=== PATIENT | male | born 1955 | race Caucasian/White ===

== ENCOUNTER 2022-04-23 17:38 | Emergency (ER) | payer OTHER, MEDICARE ==
[~2022-04-23] VITALS: Ht 175.3 cm; Wt 63.6 kg
[~2022-04-23 17:38] MED LIST: ASPI-1265 PO; ATOR10TA70 PO; BUSP15TA8 PO; CHOL10002 PO; DIPH-423 PO; IBUP-1984 PO; LOP25T PO; MIRT45TA83 PO; PANT-47 PO; QUET25TA PO
[2022-04-23 18:33] LABS: MEAN PLATELET VOLUME 7.6 FL (7.4-10.4)
[2022-04-23 18:36] LABS: BASOPHILS % (AUTO) 0.7 % (0-1); EOSINOPHILS % (AUTO) 0.2 % (0-6); HEMATOCRIT 41.9 % (42.0-52.0); HEMOGLOBIN 14.1 g/dl (14.0-17.9); LYMPHOCYTES # (AUTO) 0.4 X10'3 (1.1-4.8); LYMPHOCYTES % (AUTO) 9.8 % (21-51); MEAN CORPUSCULAR HEMOGLOBIN 32.8 PG (27.0-31.0); MEAN CORPUSCULAR HGB CONC 33.6 g/dL (33.0-36.5); MEAN CORPUSCULAR VOLUME 97.5 FL (78-98); MONOCYTES # (AUTO) 0.4 X10'3 (0-0.9); MONOCYTES % (AUTO) 8.2 % (2-12); NEUTROPHILS # (AUTO) 3.6 X10'3 (1.8-7.7); NEUTROPHILS % (AUTO) 81.1 % (42-75); PLATELET COUNT 143 X10'3 (140-440); RED BLOOD COUNT 4.29 X10'6 (4.70-6.10); WHITE BLOOD COUNT 4.4 X10'3 (4.5-11.0)
[2022-04-23 18:56] LABS: ALANINE AMINOTRANSFERASE 55 U/L (12-78); ALBUMIN 3.5 G/DL (3.4-5.0); ALBUMIN/GLOBULIN RATIO 0.8 (1.1-1.5); ALKALINE PHOSPHATASE 86 IU/L (46-116); ANION GAP 8 (8-16); ASPARTATE AMINO TRANSFERASE 33 U/L (10-37); BILIRUBIN,TOTAL 0.6 MG/DL (0.1-1.0); BLOOD UREA NITROGEN 13 MG/DL (7-18); CALCIUM 8.5 MG/DL (8.5-10.1); CHLORIDE 97 MMOL/L (99-107); GLUCOSE 99 MG/DL (70-104); POTASSIUM 4.1 MMOL/L (3.5-5.1); SODIUM 135 MMOL/L (135-145); TOTAL CARBON DIOXIDE 30.3 MMOL/L (24-32); eGFR 55 ML/MIN
[2022-04-23] MEDS ORDERED: DOXY100C76 PO (20:33)
[2022-04-23] MEDS ORDERED: DOXYCYCLINE 100MG CAPSULE PO STA (20:33)
[2022-04-23] MEDS ORDERED: acetaminophen 325mg tablet PO ONE (20:55)
[2022-04-23 21:16] VITALS: BP 134/70
== END 2022-04-23 21:18 | disposition home or self-care (01) ==
LOC: ER 17:38
DX: B34.9 Viral infection, unspecified (principal); Z20.822 Contact with and (suspected) exposure to COVID-19
CPT/HCPCS: 36415; 71045; 80053; 83880; 84484; 85025; 87502; 87503; 87635; 93005; 99285; C9803

== ENCOUNTER 2022-07-15 11:00 | Day surgery (SDC) | payer OTHER ==
[2022-07-11 10:22] LABS: BASOPHILS # (AUTO) 0.1 X10'3 (0-0.2); BASOPHILS % (AUTO) 1.1 % (0-1); EOSINOPHILS # (AUTO) 0.1 X10'3 (0-0.9); EOSINOPHILS % (AUTO) 2.5 % (0-6); HEMATOCRIT 41.9 % (42.0-52.0); HEMOGLOBIN 14.1 g/dl (14.0-17.9); LYMPHOCYTES # (AUTO) 1.2 X10'3 (1.1-4.8); LYMPHOCYTES % (AUTO) 19.3 % (21-51); MEAN CORPUSCULAR HEMOGLOBIN 34.4 PG (27.0-31.0); MEAN CORPUSCULAR HGB CONC 33.5 g/dL (33.0-36.5); MEAN CORPUSCULAR VOLUME 102.5 FL (78-98); MEAN PLATELET VOLUME 7.5 FL (7.4-10.4); MONOCYTES # (AUTO) 0.5 X10'3 (0-0.9); MONOCYTES % (AUTO) 9.2 % (2-12); NEUTROPHILS # (AUTO) 4.1 X10'3 (1.8-7.7); NEUTROPHILS % (AUTO) 67.9 % (42-75); PLATELET COUNT 211 X10'3 (140-440); RED BLOOD COUNT 4.09 X10'6 (4.70-6.10); RED CELL DISTRIBUTION WIDTH 16.3 % (11.5-14.5)
[2022-07-11 10:29] LABS: ALBUMIN 3.4 G/DL (3.4-5.0); ANION GAP 7 (8-16); BLOOD UREA NITROGEN 22 MG/DL (7-18); BUN/CREATININE RATIO 18.3 (5.4-32.0); CALCIUM 8.3 MG/DL (8.5-10.1); CHLORIDE 107 MMOL/L (99-107); GLUCOSE 90 MG/DL (70-104); POTASSIUM 4.6 MMOL/L (3.5-5.1); SODIUM 142 MMOL/L (135-145); TOTAL CARBON DIOXIDE 28.2 MMOL/L (24-32); eGFR 61 ML/MIN
[2022-07-11 10:33] LABS: APTT 35 SECONDS (22-32)
[2022-07-15] VITALS (13 sets, daily range): BP systolic 77–105; BP diastolic 43–67
[~2022-07-15] VITALS: Ht 175.3 cm; Wt 68.9 kg
[2022-07-15] MEDS ORDERED: MIDAZolam 1mg/ml 10ml vial IV ONE (11:20)
[2022-07-15] MEDS ORDERED: normal saline 1000ml 1,000 ML IV SCH (11:20)
[2022-07-15] MEDS ORDERED: fentaNYL/PF 50MCG/1 ML 2ML syringe IV ONE (11:20)
[2022-07-15] MEDS ORDERED: FURO-149 PO (11:29)
[2022-07-15] MEDS ORDERED: ATOR40TA PO (11:29)
[2022-07-15] MEDS ORDERED: AMIO200T61 PO (11:29)
[2022-07-15] MEDS ORDERED: METO50TA17 PO (11:29)
[2022-07-15] MEDS ORDERED: APIX5TAB3 PO (11:29)
[2022-07-15] MEDS ORDERED: ALB0.5UD IH (11:32)
[2022-07-15] MEDS ORDERED: SACU1TAB7 PO (11:32)
[2022-07-15] MEDS ORDERED: EMPA10TA PO (11:32)
[2022-07-15] MEDS ORDERED: METO-384 PO (11:34)
== END 2022-07-15 14:15 | disposition home or self-care (01) ==
LOC: SSTAY O 11:00
PROVIDERS: ATTEND Student in an Organized Health Care Education/Training Program
DX: I48.91 Unspecified atrial fibrillation (principal); J44.9 Chronic obstructive pulmonary disease, unspecified; I11.0 Hypertensive heart disease with heart failure; I50.9 Heart failure, unspecified; E78.5 Hyperlipidemia, unspecified; I42.0 Dilated cardiomyopathy; F32.A Depression, unspecified; F17.290 Nicotine dependence, other tobacco product, uncomplicated; F12.90 Cannabis use, unspecified, uncomplicated; F15.91 Other stimulant use, unspecified, in remission; Z95.0 Presence of cardiac pacemaker; Z79.899 Other long term (current) drug therapy; Z79.82 Long term (current) use of aspirin; F10.20 Alcohol dependence, uncomplicated
CPT/HCPCS: 36415; 80048; 85025; 85610; 85730; 92960; 93005; J2250; J3010; J7030; A4620

== ENCOUNTER 2024-07-21 21:32 | Inpatient (IN) | payer OTHER, MEDICARE ==
[~2024-07-21] VITALS: Ht 175.3 cm; Wt 68.2 kg
[~2024-07-21 21:32] MED LIST changes: +ALB0.5UD IH; +AMI200T PO; +APIX5TAB3 PO; -ATOR10TA70 PO; +ATOR40TA PO; -BUSP15TA8 PO; -DIPH-423 PO; +EMPA10TA PO; +FURO-149 PO; -IBUP-1984 PO; -LOP25T PO; +METO-384 PO; -MIRT45TA83 PO; -PANT-47 PO; -QUET25TA PO; +SACU1TAB7 PO
[2024-07-21 22:06] LABS: BASOPHILS # (AUTO) 0.1 X10'3 (0-0.2); BASOPHILS % (AUTO) 1.2 % (0-1); EOSINOPHILS # (AUTO) 0.1 X10'3 (0-0.9); HEMATOCRIT 43.1 % (42.0-52.0); HEMOGLOBIN 14.3 g/dl (14.0-17.9); LYMPHOCYTES # (AUTO) 1.6 X10'3 (1.1-4.8); MEAN CORPUSCULAR HEMOGLOBIN 33.3 PG (27.0-31.0); MEAN CORPUSCULAR HGB CONC 33.2 g/dL (33.0-36.5); MEAN CORPUSCULAR VOLUME 100.2 FL (78-98); MEAN PLATELET VOLUME 7.4 FL (7.4-10.4); MONOCYTES # (AUTO) 0.4 X10'3 (0-0.9); MONOCYTES % (AUTO) 7.7 % (2-12); NEUTROPHILS # (AUTO) 2.6 X10'3 (1.8-7.7); NEUTROPHILS % (AUTO) 55.1 % (42-75); PLATELET COUNT 198 X10'3 (140-440); RED BLOOD COUNT 4.31 X10'6 (4.70-6.10); RED CELL DISTRIBUTION WIDTH 14.9 % (11.5-14.5); WHITE BLOOD COUNT 4.8 X10'3 (4.5-11.0)
[2024-07-21 22:20] LABS: ALANINE AMINOTRANSFERASE 42 U/L (12-78); ALBUMIN 3.5 G/DL (3.4-5.0); ALBUMIN/GLOBULIN RATIO 0.7 (1.1-1.5); ALKALINE PHOSPHATASE 99 IU/L (46-116); ANION GAP 2 (8-16); ASPARTATE AMINO TRANSFERASE 35 U/L (10-37); BILIRUBIN,TOTAL 0.4 MG/DL (0.1-1.0); BLOOD UREA NITROGEN 16 MG/DL (7-18); BUN/CREATININE RATIO 13.7 (10.0-20.0); CALCIUM 8.4 MG/DL (8.5-10.1); CHLORIDE 107 MMOL/L (99-107); CREATININE 1.17 MG/DL (0.60-1.10); GLUCOSE 95 MG/DL (70-104); POTASSIUM 3.8 MMOL/L (3.5-5.1); SODIUM 145 MMOL/L (135-145); TOTAL CARBON DIOXIDE 35.6 MMOL/L (24-32); TOTAL PROTEIN 8.4 G/DL (6.4-8.2); eCRCL 58 ML/MIN; eGFR 62 ML/MIN
[2024-07-21 22:26] LABS: PRO BRAIN NATRIURETIC PEPTIDE 4261 PG/ML (0-125)
[2024-07-22] VITALS (18 sets, daily range): BP systolic 107–143; BP diastolic 54–83; PULSE 52–122; RESP 13–20; TEMP 97.4–98.1; O2SAT 96–99
[2024-07-22] MEDS: magnesium oxide 400mg tablet PO ONE (00:54)
[2024-07-22] MEDS: orphenadrine citrate 60mg/2ml inj. IM ONE (00:55)
[2024-07-22] MEDS: chlordiazePOXIDE 25mg capsule PO ONE (01:00)
[2024-07-22] MEDS: HYDROcodone/acetaminophen 5mg/325mg tablet PO ONE ×2 (01:35→20:48)
[2024-07-22 02:01] LABS: MAGNESIUM 2.1 MG/DL (1.5-2.4)
[2024-07-22 02:04] LABS: ETHANOL < 10 MG/DL (<10)
[2024-07-22] MEDS ORDERED: potassium Cl 40MEQ/1/2NS 520ml 520 ML IV PRN (02:15)
[2024-07-22] MEDS ORDERED: magnesium sulf-water 2g/50mL 50 ML IV PRN (02:15)
[2024-07-22] MEDS ORDERED: magnesium sulf-water 4G/100mL 100 ML IV PRN (02:15)
[2024-07-22] MEDS ORDERED: morphine 2 MG/ML inj. syringe IV PRN (02:15)
[2024-07-22] MEDS ORDERED: acetaminophen 325mg tablet PO PRN ×2 (02:15)
[2024-07-22] MEDS ORDERED: magnesium Cl slow-release 64mg tablet PO PRN (02:15)
[2024-07-22] MEDS ORDERED: ondansetron/PF 4mg/2ml inj IV PRN (02:15)
[2024-07-22] MEDS ORDERED: potassium Cl 20 mEq SR tablet PO PRN ×2 (02:15)
[2024-07-22] MEDS ORDERED: magnesium hydroxide 30ml (MOM) UD suspension PO PRN (02:15)
[2024-07-22] MEDS ORDERED: mag hydrox/Alum hydrox/simeth 30ml oral suspension PO PRN (02:15)
[2024-07-22] MEDS ORDERED: ipratropium/albuterol 3ml nebule NEB PRN (02:30)
[2024-07-22] MEDS ORDERED: albuterol 2.5 MG/3 ML nebule NEB PRN (02:30)
[2024-07-22] MEDS: metoprolol tartrate 1mg/ml inj IV SCH (02:35)
[2024-07-22 03:33] LABS: HEMOGLOBIN A1C 5.6 % (4.5-6.2)
[2024-07-22 03:42] LABS: APTT 30 SECONDS (22-32); INR 1.1 INR; PROTHROMBIN TIME 11.1 SECONDS (9.0-12.0)
[2024-07-22 03:45] LABS: PHOSPHORUS 3.7 MG/DL (2.3-4.5); POTASSIUM 4.3 MMOL/L (3.5-5.1); THYROID STIMULATING HORMONE 1.26 ulU/ml (0.34-4.50)
[2024-07-22] MEDS: diltiazem-NS 100mg/100ml 100 ML IV SCH ×2 (05:20→14:11)
[2024-07-22] MEDS: K and/or MAG REPLACEMENT MC SCH (07:31)
[2024-07-22] MEDS: nicotine 14mg patch - 24hr TD SCH (07:32)
[2024-07-22] MEDS: docusate sod 100mg capsule PO SCH (08:00)
[2024-07-22] MEDS ORDERED: heparin, porcine 5000 units/ml vial SQ SCH (08:00)
[2024-07-22] MEDS: apixaban 5mg tablet PO SCH (08:14)
[2024-07-22] MEDS: atorvastatin 20mg tablet PO SCH (08:14)
[2024-07-22] MEDS: cholecalciferol (vitamin D3) 1,000 unit (25mcg) tablet PO SCH (08:14)
[2024-07-22] MEDS: sacubitril/valsartan 49mg-51mg tablet PO SCH ×2 (09:12→20:55)
[2024-07-22] MEDS: metoprolol succinate 25mg (24-HOUR) SR. Tablet PO SCH (14:10)
[2024-07-22 17:09] LABS: D-DIMER 0.25 MG/L FEU (0-0.50)
[2024-07-23] VITALS (9 sets, daily range): BP systolic 91–150; BP diastolic 52–78; PULSE 63–124; RESP 13–20; TEMP 97.4–97.8; O2SAT 97–100
[2024-07-23] MEDS: HYDROcodone/acetaminophen 5mg/325mg tablet PO PRN (05:17)
[2024-07-23 06:29] LABS: BASOPHILS # (AUTO) 0.1 X10'3 (0-0.2); EOSINOPHILS # (AUTO) 0.2 X10'3 (0-0.9); EOSINOPHILS % (AUTO) 2.8 % (0-6); HEMATOCRIT 41.2 % (42.0-52.0); HEMOGLOBIN 13.8 g/dl (14.0-17.9); LYMPHOCYTES # (AUTO) 1.9 X10'3 (1.1-4.8); LYMPHOCYTES % (AUTO) 33.3 % (21-51); MEAN CORPUSCULAR HEMOGLOBIN 33.3 PG (27.0-31.0); MEAN CORPUSCULAR HGB CONC 33.5 g/dL (33.0-36.5); MEAN CORPUSCULAR VOLUME 99.6 FL (78-98); MEAN PLATELET VOLUME 8.3 FL (7.4-10.4); MONOCYTES # (AUTO) 0.5 X10'3 (0-0.9); NEUTROPHILS # (AUTO) 3.1 X10'3 (1.8-7.7); NEUTROPHILS % (AUTO) 54.9 % (42-75); PLATELET COUNT 171 X10'3 (140-440); RED BLOOD COUNT 4.13 X10'6 (4.70-6.10); RED CELL DISTRIBUTION WIDTH 14.4 % (11.5-14.5); WHITE BLOOD COUNT 5.7 X10'3 (4.5-11.0)
[2024-07-23 06:36] LABS: ALBUMIN 2.9 G/DL (3.4-5.0); ANION GAP 9 (8-16); BLOOD UREA NITROGEN 23 MG/DL (7-18); BUN/CREATININE RATIO 24.5 (10.0-20.0); CALCIUM 8.1 MG/DL (8.5-10.1); CHLORIDE 107 MMOL/L (99-107); CHOL/HDL RATIO 2.1 (0.00-4.99); CHOLESTEROL 125 MG/DL (0-200); CREATININE 0.94 MG/DL (0.60-1.10); GLUCOSE 82 MG/DL (70-104); HDL CHOLESTEROL 59 MG/DL (35-60); LDL CHOLESTEROL 60 MG/DL (50-100); SODIUM 142 MMOL/L (135-145); TOTAL CARBON DIOXIDE 25.6 MMOL/L (24-32); TRIGLYCERIDES 66 MG/DL (20-135); eCRCL 73 ML/MIN; eGFR 80 ML/MIN
[2024-07-23] MEDS: spironolactone 25 MG tablet PO SCH (07:35)
[2024-07-23] MEDS: EMPAGLIFLOZIN 10 MG TABLET PO SCH (07:35)
[2024-07-23] MEDS: amiodarone 200mg tablet PO SCH ×2 (10:07→20:12)
[2024-07-24 02:00] VITALS: BP 110/71; PULSE 66; RESP 18; TEMP 97.1; O2SAT 98
[2024-07-24 03:23] VITALS: PULSE 68; RESP 18; O2SAT 97
[2024-07-24 06:00] VITALS: BP 121/64; PULSE 66; RESP 18; TEMP 97.2; O2SAT 97
[2024-07-24 06:13] LABS: BASOPHILS # (AUTO) 0.1 X10'3 (0-0.2); EOSINOPHILS # (AUTO) 0.1 X10'3 (0-0.9); EOSINOPHILS % (AUTO) 2.1 % (0-6); HEMATOCRIT 42.5 % (42.0-52.0); HEMOGLOBIN 14.3 g/dl (14.0-17.9); LYMPHOCYTES # (AUTO) 1.8 X10'3 (1.1-4.8); LYMPHOCYTES % (AUTO) 28.5 % (21-51); MEAN CORPUSCULAR HEMOGLOBIN 33.8 PG (27.0-31.0); MEAN CORPUSCULAR HGB CONC 33.6 g/dL (33.0-36.5); MEAN CORPUSCULAR VOLUME 100.5 FL (78-98); MEAN PLATELET VOLUME 8.1 FL (7.4-10.4); MONOCYTES # (AUTO) 0.7 X10'3 (0-0.9); MONOCYTES % (AUTO) 10.2 % (2-12); NEUTROPHILS # (AUTO) 3.7 X10'3 (1.8-7.7); NEUTROPHILS % (AUTO) 58.2 % (42-75); PLATELET COUNT 176 X10'3 (140-440); RED BLOOD COUNT 4.23 X10'6 (4.70-6.10); RED CELL DISTRIBUTION WIDTH 14.8 % (11.5-14.5); WHITE BLOOD COUNT 6.4 X10'3 (4.5-11.0)
[2024-07-24 06:30] LABS: ALBUMIN 2.8 G/DL (3.4-5.0); ANION GAP 9 (8-16); BLOOD UREA NITROGEN 18 MG/DL (7-18); CALCIUM 8.4 MG/DL (8.5-10.1); CHLORIDE 105 MMOL/L (99-107); GLUCOSE 78 MG/DL (70-104); SODIUM 139 MMOL/L (135-145); eCRCL 68 ML/MIN; eGFR 74 ML/MIN
[2024-07-24 07:00] LABS: POTASSIUM 4.2 MMOL/L (3.5-5.1)
[2024-07-24] MEDS ORDERED: EMPA10TA PO (09:35)
[2024-07-24] MEDS ORDERED: METO100T14 PO (09:35)
[2024-07-24] MEDS ORDERED: AMI200T PO (09:35)
[2024-07-24] MEDS ORDERED: SPIR25TA PO (09:35)
[2024-07-24 11:00] VITALS: BP 108/61; PULSE 103; RESP 18; TEMP 98.5; O2SAT 98
== END 2024-07-24 11:05 | disposition home or self-care (01) | DRG 309 ==
LOC: ER 21:34 → ED HOLD 07-22 02:16 → EDBEDREQ 07-22 05:27 → PCU 3S 07-22 07:47
PROVIDERS: ADMIT Surgery Surgical Critical Care; ATTEND Family Medicine
DX: I48.21 Permanent atrial fibrillation (principal); I13.0 Hypertensive heart and chronic kidney disease with heart failure and stage 1 through stage 4 chronic kidney disease, or unspecified chronic kidney disease; I50.22 Chronic systolic (congestive) heart failure; I71.40 Abdominal aortic aneurysm, without rupture, unspecified; I25.10 Atherosclerotic heart disease of native coronary artery without angina pectoris; E78.5 Hyperlipidemia, unspecified; I49.5 Sick sinus syndrome; F17.210 Nicotine dependence, cigarettes, uncomplicated; I48.20 Chronic atrial fibrillation, unspecified; J44.9 Chronic obstructive pulmonary disease, unspecified; N18.30 Chronic kidney disease, stage 3 unspecified; Z66 Do not resuscitate; Z79.899 Other long term (current) drug therapy; I25.2 Old myocardial infarction; Z79.01 Long term (current) use of anticoagulants; Z95.0 Presence of cardiac pacemaker
CPT/HCPCS: 36415; 71045; 80048; 80053; 80061; 80320; 83036; 83735; 83880; 84100; 84132; 84436; 84443; 84484; 85025; 85379; 85610; 85730; 87081; 93005; 93306; 94760; 96365; 96366; 97116; 97161; 99285; G0378; J3490; J7030

== ENCOUNTER 2024-08-18 19:46 | Inpatient (IN) | payer OTHER, MEDICARE ==
[~2024-08-18] VITALS: Ht 175.3 cm; Wt 69.7 kg
[~2024-08-18 19:46] MED LIST changes: -ALB0.5UD IH; -ASPI-1265 PO; -METO-384 PO; +METO100T14 PO; +SPIR25TA PO
[2024-08-18 21:39] LABS: BASOPHILS # (AUTO) 0.1 X10'3 (0-0.2); BASOPHILS % (AUTO) 1.1 % (0-1); EOSINOPHILS # (AUTO) 0.1 X10'3 (0-0.9); EOSINOPHILS % (AUTO) 1.4 % (0-6); HEMATOCRIT 41.6 % (42.0-52.0); HEMOGLOBIN 13.9 g/dl (14.0-17.9); LYMPHOCYTES # (AUTO) 1.4 X10'3 (1.1-4.8); LYMPHOCYTES % (AUTO) 23.1 % (21-51); MEAN CORPUSCULAR HEMOGLOBIN 33.2 PG (27.0-31.0); MEAN CORPUSCULAR HGB CONC 33.5 g/dL (33.0-36.5); MEAN PLATELET VOLUME 7.8 FL (7.4-10.4); MONOCYTES # (AUTO) 0.4 X10'3 (0-0.9); MONOCYTES % (AUTO) 7.1 % (2-12); NEUTROPHILS # (AUTO) 4.1 X10'3 (1.8-7.7); NEUTROPHILS % (AUTO) 67.3 % (42-75); PLATELET COUNT 232 X10'3 (140-440); RED CELL DISTRIBUTION WIDTH 14.6 % (11.5-14.5)
[2024-08-18 21:43] LABS: ALBUMIN 3.5 G/DL (3.4-5.0); ANION GAP 5 (8-16); BLOOD UREA NITROGEN 16 MG/DL (7-18); BUN/CREATININE RATIO 9.9 (10.0-20.0); CALCIUM 8.3 MG/DL (8.5-10.1); CHLORIDE 102 MMOL/L (99-107); CREATININE 1.62 MG/DL (0.60-1.10); GLUCOSE 90 MG/DL (70-104); POTASSIUM 3.7 MMOL/L (3.5-5.1); SODIUM 138 MMOL/L (135-145); TOTAL CARBON DIOXIDE 31.2 MMOL/L (24-32); eCRCL 43 ML/MIN; eGFR 43 ML/MIN
[2024-08-18 21:44] LABS: APTT 30 SECONDS (22-32); PROTHROMBIN TIME 10.6 SECONDS (9.0-12.0)
[2024-08-18] MEDS: ringers solution, lacted 1,000 ML IV ONE (22:02)
[2024-08-18] MEDS: morphine 4 MG/ML inj SYRINge IV ONE (22:03)
[2024-08-19] MEDS: proCHLORperazine 10 MG/2 ml inj IV ONE (00:24)
[2024-08-19] MEDS: ketorolac trometh 15mg/ml vial 15 MG/ML ML IV ONE (01:46)
[2024-08-19] MEDS ORDERED: acetaminophen 325mg tablet PO PRN (05:00)
[2024-08-19] MEDS ORDERED: potassium Cl 20 mEq SR tablet PO PRN ×2 (05:00)
[2024-08-19] MEDS ORDERED: magnesium sulf-water 2g/50mL 50 ML IV PRN (05:00)
[2024-08-19] MEDS ORDERED: magnesium Cl slow-release 64mg tablet PO PRN (05:00)
[2024-08-19] MEDS ORDERED: ondansetron/PF 4mg/2ml inj IV PRN (05:00)
[2024-08-19] MEDS ORDERED: magnesium hydroxide 30ml (MOM) UD suspension PO PRN (05:00)
[2024-08-19] MEDS: PERFLUTREN PROTEIN-A MICROSPHR (Optison) 0.22 MG/ML 3ML VIAL IV ONE (05:00)
[2024-08-19] MEDS ORDERED: mag hydrox/Alum hydrox/simeth 30ml oral suspension PO PRN (05:00)
[2024-08-19] MEDS ORDERED: potassium Cl 40MEQ/1/2NS 520ml 520 ML IV PRN (05:00)
[2024-08-19] MEDS ORDERED: magnesium sulf-water 4G/100mL 100 ML IV PRN (05:00)
[2024-08-19] MEDS ORDERED: morphine 2 MG/ML inj. syringe IV PRN ×2 (05:00)
[2024-08-19 06:44] LABS: POTASSIUM 4.2 MMOL/L (3.5-5.1)
[2024-08-19 07:30] VITALS: BP 137/66; PULSE 60; RESP 16; TEMP 97.8; O2SAT 100
[2024-08-19 08:00] VITALS: RESP 18; O2SAT 94
[2024-08-19] MEDS ORDERED: iohexol 350MG/ML 100ml bottle IV ONE (08:00)
[2024-08-19] MEDS ORDERED: heparin, porcine 5000 units/ml vial SQ SCH (08:00)
[2024-08-19] MEDS: K and/or MAG REPLACEMENT MC SCH (08:00)
[2024-08-19] MEDS: apixaban 5mg tablet PO SCH (08:05)
[2024-08-19] MEDS: atorvastatin 20mg tablet PO SCH (08:05)
[2024-08-19] MEDS: cholecalciferol (vitamin D3) 1,000 unit (25mcg) tablet PO SCH (08:05)
[2024-08-19] MEDS: docusate sod 100mg capsule PO SCH (08:05)
[2024-08-19] MEDS: EMPAGLIFLOZIN 10 MG TABLET PO SCH (08:06)
[2024-08-19] MEDS: metoprolol tartrate 50mg tablet PO SCH ×2 (08:06→08:23)
[2024-08-19] MEDS ORDERED: METO50TA16 PO (08:18)
[2024-08-19] MEDS ORDERED: metoprolol tartrate 50mg tablet PO SCH (08:20)
[2024-08-19] MEDS: amiodarone 200mg tablet PO SCH (08:50)
[2024-08-19] MEDS: sacubitril/valsartan 49mg-51mg tablet PO SCH (08:51)
[2024-08-19 10:00] VITALS: BP 123/69; PULSE 59; RESP 14; TEMP 98.1; O2SAT 100
[2024-08-19] MEDS: aspirin 81mg tab.chew PO ONE (11:08)
[2024-08-19 18:00] VITALS: BP 140/65; PULSE 61; RESP 16; TEMP 97.8; O2SAT 98
[2024-08-19] MEDS: normal saline 1000ml 1,000 ML IV SCH (20:17)
[2024-08-19 22:00] VITALS: BP 155/73; PULSE 59; RESP 16; TEMP 98.1; O2SAT 96
[2024-08-20 05:00] VITALS: BP 138/66; PULSE 61; RESP 18; TEMP 97.4; O2SAT 98
[2024-08-20 05:33] LABS: BASOPHILS # (AUTO) 0.1 X10'3 (0-0.2); EOSINOPHILS # (AUTO) 0.1 X10'3 (0-0.9); EOSINOPHILS % (AUTO) 2.2 % (0-6); HEMATOCRIT 41.7 % (42.0-52.0); HEMOGLOBIN 14.1 g/dl (14.0-17.9); LYMPHOCYTES # (AUTO) 1.1 X10'3 (1.1-4.8); LYMPHOCYTES % (AUTO) 16.8 % (21-51); MEAN CORPUSCULAR HEMOGLOBIN 33.4 PG (27.0-31.0); MEAN CORPUSCULAR HGB CONC 33.8 g/dL (33.0-36.5); MEAN CORPUSCULAR VOLUME 98.6 FL (78-98); MEAN PLATELET VOLUME 7.9 FL (7.4-10.4); MONOCYTES # (AUTO) 0.6 X10'3 (0-0.9); MONOCYTES % (AUTO) 8.7 % (2-12); NEUTROPHILS # (AUTO) 4.7 X10'3 (1.8-7.7); NEUTROPHILS % (AUTO) 71.3 % (42-75); PLATELET COUNT 197 X10'3 (140-440); RED BLOOD COUNT 4.23 X10'6 (4.70-6.10); RED CELL DISTRIBUTION WIDTH 14.3 % (11.5-14.5); WHITE BLOOD COUNT 6.6 X10'3 (4.5-11.0)
[2024-08-20 05:55] LABS: ALANINE AMINOTRANSFERASE 38 U/L (12-78); ALBUMIN 2.9 G/DL (3.4-5.0); ALBUMIN/GLOBULIN RATIO 0.7 (1.1-1.5); ALKALINE PHOSPHATASE 110 IU/L (46-116); ANION GAP 8 (8-16); ASPARTATE AMINO TRANSFERASE 29 U/L (10-37); BILIRUBIN,TOTAL 0.9 MG/DL (0.1-1.0); BLOOD UREA NITROGEN 26 MG/DL (7-18); BUN/CREATININE RATIO 25.2 (10.0-20.0); CALCIUM 8.2 MG/DL (8.5-10.1); CHLORIDE 105 MMOL/L (99-107); CREATININE 1.03 MG/DL (0.60-1.10); GLUCOSE 72 MG/DL (70-104); MAGNESIUM 2.1 MG/DL (1.5-2.4); POTASSIUM 4.3 MMOL/L (3.5-5.1); SODIUM 139 MMOL/L (135-145); TOTAL CARBON DIOXIDE 26.5 MMOL/L (24-32); eCRCL 68 ML/MIN; eGFR 72 ML/MIN
[2024-08-20 06:00] VITALS: BP 138/66; PULSE 61; RESP 18; TEMP 97.4; O2SAT 98
[2024-08-20 07:30] VITALS: RESP 18; O2SAT 98
[2024-08-20] MEDS: aspirin 81mg tab.chew PO SCH (07:52)
[2024-08-20 09:30] VITALS: BP 140/64; PULSE 60; RESP 18; TEMP 97.5; O2SAT 98
[2024-08-20] MEDS ORDERED: ASPI-920 PO (10:25)
[2024-08-20] MEDS ORDERED: DEXA6TAB PO (17:33)
[2024-08-20] MEDS ORDERED: CYCL-920 PO (17:33)
== END 2024-08-20 11:10 | disposition home or self-care (01) | DRG 102 ==
LOC: ER 19:47 → ED HOLD 08-19 05:03 → ORTHO 4S 08-19 07:20
PROVIDERS: ADMIT Internal Medicine Pulmonary Disease; ATTEND Family Medicine
PROC: B3251ZZ Computerized Tomography (CT Scan) of Bilateral Common Carotid Arteries using Low Osmolar Contrast (ICD-10-PCS; principal; 2024-08-19)
PROC: B32G1ZZ Computerized Tomography (CT Scan) of Bilateral Vertebral Arteries using Low Osmolar Contrast (ICD-10-PCS; 2024-08-19)
PROC: B32R1ZZ Computerized Tomography (CT Scan) of Intracranial Arteries using Low Osmolar Contrast (ICD-10-PCS; 2024-08-19)
PROC: B3281ZZ Computerized Tomography (CT Scan) of Bilateral Internal Carotid Arteries using Low Osmolar Contrast (ICD-10-PCS; 2024-08-19)
DX: G43.909 Migraine, unspecified, not intractable, without status migrainosus (principal); I77.71 Dissection of carotid artery; N17.9 Acute kidney failure, unspecified; E78.5 Hyperlipidemia, unspecified; Z66 Do not resuscitate; I25.10 Atherosclerotic heart disease of native coronary artery without angina pectoris; G62.9 Polyneuropathy, unspecified; I11.0 Hypertensive heart disease with heart failure; I50.9 Heart failure, unspecified; I48.91 Unspecified atrial fibrillation; I25.2 Old myocardial infarction; Z79.01 Long term (current) use of anticoagulants; Z79.899 Other long term (current) drug therapy
CPT/HCPCS: 36415; 70450; 70496; 70498; 70551; 80048; 80053; 83735; 84132; 85025; 85610; 85730; 87081; 93308; 96360; 96361; 96374; 99285; G0378; J0780; J1885; J2270; J7030; J7120; Q9967

== ENCOUNTER 2024-08-20 16:04 | Emergency (ER) | payer OTHER, MEDICARE ==
[~2024-08-20] VITALS: Ht 175.3 cm; Wt 66.6 kg
[~2024-08-20 16:04] MED LIST changes: -AMI200T PO; +ASPI-920 PO; -FURO-149 PO; -METO100T14 PO; +METO50TA16 PO; -SPIR25TA PO
[2024-08-20 16:07] VITALS: BP 150/75; PULSE 60; RESP 16; TEMP 97.6; O2SAT 100
[2024-08-20] MEDS: dexamethasone sod phosphate 10mg/ml inj IM STA (16:28)
[2024-08-20] MEDS ORDERED: CYCL-920 PO (17:33)
[2024-08-20] MEDS ORDERED: DEXA6TAB PO (17:33)
== END 2024-08-20 17:44 | disposition home or self-care (01) ==
LOC: ER 16:04
DX: M54.81 Occipital neuralgia (principal); I11.9 Hypertensive heart disease without heart failure; I25.10 Atherosclerotic heart disease of native coronary artery without angina pectoris; I48.91 Unspecified atrial fibrillation; F10.10 Alcohol abuse, uncomplicated; Z95.0 Presence of cardiac pacemaker; Z79.82 Long term (current) use of aspirin; Y90.9 Presence of alcohol in blood, level not specified
CPT/HCPCS: 99283